=== PATIENT | female | born 1940 | race Caucasian/White ===

== ENCOUNTER → 2018-09-01 | Outpatient (CLI) | payer MEDICARE | END | disposition home or self-care (01) | LOC: CFH 11:22 | PROVIDERS: ATTEND Family Medicine | DX: Z12.31 Encounter for screening mammogram for malignant neoplasm of breast (principal) | CPT/HCPCS: 77063; 77067 ==

== ENCOUNTER → 2019-05-25 | Outpatient (CLI) | payer MEDICARE ==
[~2019-05-25] MED LIST: ATOR40TA78 PO; CHOL200024 PO; CYAN1TAB29 PO; UBID1CAP43 PO; VITA100T4 PO
[2019-05-25 14:53] LABS: BASOPHILS # (AUTO) 0.03 x10^3/uL (0-0.1); BASOPHILS % (AUTO) 0 % (0-1); EOSINOPHILS # (AUTO) 0.08 x10^3/uL (0-0.4); EOSINOPHILS % (AUTO) 1 % (1-7); LYMPHOCYTES # (AUTO) 1.82 x10^3/uL (1-3.4); LYMPHOCYTES % (AUTO) 25 % (22-44); MD NO; MEAN CORPUSCULAR HEMOGLOBIN 29.5 pg (27.0-34.8); MEAN CORPUSCULAR HGB CONC 33.5 g/dL (32.4-35.8); MEAN CORPUSCULAR VOLUME 87.9 fL (80-100); MEAN PLATELET VOLUME 7.2 fL (7.4-10.4); MONOCYTES # (AUTO) 0.67 x10^3/uL (0.2-0.8); MONOCYTES % (AUTO) 9 % (2-9); NEUTROPHILS # (AUTO) 4.84 x10^3/uL (1.8-6.8); NEUTROPHILS % (AUTO) 65 % (42-75); PLATELET COUNT 233 x10^3/uL (130-400); RED BLOOD COUNT 4.62 x10^6/uL (3.82-5.3)
[2019-05-25 15:02] LABS: ALANINE AMINOTRANSFERASE 20 U/L (12-78); ALBUMIN 3.7 g/dL (3.4-5.0); ANION GAP 7 mmol/L (5-15); CHLORIDE 107 mmol/L (98-107); CREATININE 0.87 mg/dL (0.55-1.02)
[2019-05-25 15:04] LABS: BILIRUBIN,TOTAL 0.5 mg/dL (0.2-1.0); TOTAL PROTEIN 8.4 g/dL (6.4-8.2)
[2019-05-25 15:08] LABS: ALKALINE PHOSPHATASE 97 U/L (45-117); CALCIUM 9.3 mg/dL (8.5-10.1)
== END | disposition home or self-care (01) ==
LOC: STAR 13:40
PROVIDERS: ATTEND Orthopaedic Surgery
DX: Z01.818 Encounter for other preprocedural examination (principal); M16.12 Unilateral primary osteoarthritis, left hip
CPT/HCPCS: 36415; 80053; 85025; 87081; 93005

== ENCOUNTER 2019-06-01 05:50 | Observation (INO) | payer MEDICARE ==
[~2019-06-01] VITALS: Ht 157.5 cm; Wt 59.0 kg
[2019-06-01] MEDS ORDERED: DEXAMETHASONE 4 MG/ML, 1ML IVPush ONE (06:00)
[2019-06-01] MEDS ORDERED: LACTATED RINGERS 1,000 ML IV SCH (06:04)
[2019-06-01] MEDS ORDERED: TRANEXAMIC ACID 100 MG/ML, 10ML ONE ×2 (06:20)
[2019-06-01] MEDS ORDERED: ROPIvacaine/PF 0.2%, 20 ML ONE (06:20)
[2019-06-01] MEDS ORDERED: EPINEPHRINE 1 MG/ML, 1ML ONE (06:20)
[2019-06-01] MEDS ORDERED: SODIUM CHLORIDE 0.9% 50 ML ONE (06:20)
[2019-06-01] MEDS ORDERED: VANCOMYCIN 1,000 MG ONE (06:20)
[2019-06-01] MEDS ORDERED: KETOROLAC 60 MG/2 ML ONE (06:22)
[2019-06-01] MEDS ORDERED: GABAPENTIN 300 MG CAPSULE PO ONE (07:00)
[2019-06-01] MEDS ORDERED: ACETAMINOPHEN 500 MG TABLET PO ONE (07:00)
[2019-06-01] MEDS ORDERED: GABAPENTIN 300 MG CAPSULE ONE (07:05)
[2019-06-01] MEDS ORDERED: ACETAMINOPHEN 500 MG TABLET ONE (07:05)
[2019-06-01] MEDS ORDERED: PROPOFOL 10 MG/ML, 20ML ONE (07:09)
[2019-06-01] MEDS ORDERED: DEXAMETHASONE 4 MG/ML, 1ML ONE ×2 (07:09→08:22)
[2019-06-01] MEDS ORDERED: FENTANYL PF 250 MCG/5ML ONE (07:09)
[2019-06-01] MEDS ORDERED: SUCCINYLCHOLINE 20 MG/ML, 10ML ONE (07:11)
[2019-06-01] MEDS ORDERED: ROCURONIUM 10MG/ML,5ML ONE (07:15)
[2019-06-01] MEDS ORDERED: CEFAZOLIN 1,000 MG ONE (07:15)
[2019-06-01] MEDS ORDERED: ONDANSETRON 2MG/ML, 2ML IV PRN ×2 (08:00→09:00)
[2019-06-01] MEDS ORDERED: OXYcodone 5 MG/5 ML ORAL.SOL UDC PO PRN (08:00)
[2019-06-01] MEDS ORDERED: ALBUTEROL SULFATE 2.5 MG/3 ML NPPB PRN (08:00)
[2019-06-01] MEDS ORDERED: MIDAZOLAM 1 MG/ML, 2ML IV PRN (08:00)
[2019-06-01] MEDS ORDERED: HYDROmorphone 2 MG/ML, 1ML IVPush PRN (08:00)
[2019-06-01] MEDS ORDERED: PROMETHAZINE 25 MG/ML, 1ML IV PRN (08:00)
[2019-06-01] MEDS ORDERED: LABETALOL 5MG/ML, 20ML IV PRN (08:00)
[2019-06-01] MEDS ORDERED: DIAZEPAM 5 MG/ML, 2ML IVPush PRN (08:00)
[2019-06-01] MEDS ORDERED: ONDANSETRON ODT 8 MG PO PRN (08:00)
[2019-06-01] MEDS ORDERED: PROMETHAZINE 12.5 MG SUPP PR PRN ×2 (08:00→09:00)
[2019-06-01] MEDS ORDERED: EPHEDRINE 50 MG/ML, 1ML IVPush PRN (08:00)
[2019-06-01] MEDS ORDERED: hydrALAzine 20 MG/ML, 1ML IV PRN (08:00)
[2019-06-01] MEDS ORDERED: ONDANSETRON 2MG/ML, 2ML ONE ×2 (08:22)
[2019-06-01] MEDS ORDERED: D5%-0.45% NACL 1,000 ML IV SCH (08:52)
[2019-06-01] MEDS: FENTANYL PF 100 MCG/2ML IV PRN ×2 (09:00→09:15)
[2019-06-01] MEDS ORDERED: SENNA/DOCUSATE TABLET PO PRN (09:00)
[2019-06-01] MEDS ORDERED: FERROUS SULFATE 325 MG TABLET PO SCH (09:00)
[2019-06-01] MEDS ORDERED: DIAZEPAM 5 MG TABLET PO PRN (09:00)
[2019-06-01] MEDS ORDERED: ALUMINUM/MAG/SIMETHICONE 30 ML UDC PO PRN (09:00)
[2019-06-01] MEDS ORDERED: BISACODYL 10 MG SUPP PR PRN (09:00)
[2019-06-01] MEDS ORDERED: ONDANSETRON 4 MG TABLET PO PRN (09:00)
[2019-06-01] MEDS ORDERED: KETOROLAC 30 MG/1 ML IV SCH (09:00)
[2019-06-01] MEDS: ACETAMINOPHEN 325 MG TABLET PO SCH ×2 (09:00→15:16)
[2019-06-01] MEDS ORDERED: MULTIVITAMINS/MINERALS TABLET PO SCH (09:00)
[2019-06-01] MEDS ORDERED: DIPHENHYDRAMINE 50 MG CAPSULE PO PRN (09:00)
[2019-06-01] MEDS ORDERED: ASCORBIC ACID 500 MG TABLET PO SCH (09:00)
[2019-06-01] MEDS ORDERED: MAGNESIUM HYDROXIDE 8%, 30ML UDC PO PRN (09:00)
[2019-06-01] MEDS ORDERED: DOCUSATE 100 MG CAPSULE PO SCH (09:00)
[2019-06-01] MEDS ORDERED: HYDROcodone/APAP 10/325 MG TABLET PO PRN (09:00)
[2019-06-01] MEDS ORDERED: ZOLPIDEM 5MG TABLET PO PRN (09:00)
[2019-06-01] MEDS ORDERED: HYDROmorphone 1 MG/ML, 1ML INJ IVPush PRN (09:00)
[2019-06-01] MEDS ORDERED: PSYLLIUM PACKET PO PRN (09:00)
[2019-06-01] MEDS ORDERED: FENTANYL PF 100 MCG/2ML ONE (09:01)
[2019-06-01] MEDS ORDERED: OXYcodone 5 MG/5 ML ORAL.SOL UDC ONE (09:01)
[2019-06-01] MEDS ORDERED: MEPERIDINE/PF 25MG/ML,1ML ONE (09:23)
[2019-06-01] MEDS: MEPERIDINE/PF 25MG/ML,1ML IVPush PRN ×2 (09:28→09:30)
[2019-06-01] MEDS ORDERED: TRANEXAMIC ACID 1,000 MG in SODIUM CHLORIDE 0.9% 100 ML IVPB ONE (10:30)
[2019-06-01] MEDS ORDERED: CEFAZOLIN PMX 2GM/50ML 50 ML IVPB SCH (11:00)
[2019-06-01] MEDS ORDERED: CALCIUM/VITAMIN D3 250-125 TABLET PO SCH (12:00)
[2019-06-01 12:27] VITALS: BP 106/6
[2019-06-01] MEDS ORDERED: ASPIRIN 81 MG TABLET EC PO SCH ×2 (15:00)
[2019-06-01] MEDS ORDERED: ATORVASTATIN 40 MG TABLET PO SCH (21:00)
[2019-06-02] MEDS ORDERED: DEXAMETHASONE 4 MG/ML, 5ML IVPush ONE (06:00)
== END 2019-06-01 17:00 | disposition home or self-care (01) ==
LOC: OUT 05:50 → 4NE 08:52 → OUT 11:18 → DCLOUNGE 16:43
PROVIDERS: ADMIT Orthopaedic Surgery; ATTEND Orthopaedic Surgery
DX: M16.12 Unilateral primary osteoarthritis, left hip (principal); Z87.891 Personal history of nicotine dependence; Z79.899 Other long term (current) drug therapy
CPT/HCPCS: 27130; 36415; 72170; 86850; 86900; 96365; 97161; 97165; C1713; C1776; G0378; J0171; J0330; J0690; J1100; J1885; J2175; J2405; J2704; J2795; J3010; J7120; J3370

== ENCOUNTER → 2020-03-04 | Outpatient (CLI) | payer MEDICARE | END | disposition home or self-care (01) | LOC: CFH 12:12 | PROVIDERS: ATTEND Nurse Practitioner Family | DX: Z12.31 Encounter for screening mammogram for malignant neoplasm of breast (principal) | CPT/HCPCS: 77063; 77067 ==